=== PATIENT | female | born 1950 | race African-American/Black ===

== ENCOUNTER 2024-03-28 09:53 | Outpatient (CLI) | payer MEDICARE, MEDICAID | END 2024-03-28 09:54 | disposition home or self-care (01) | LOC: CSHMAMMO 09:53 | PROVIDERS: ATTEND Nurse Practitioner Family | DX: Z12.31 Encounter for screening mammogram for malignant neoplasm of breast (principal); Z78.0 Asymptomatic menopausal state | CPT/HCPCS: 77067; 77080 ==